=== PATIENT | male | born 1960 | race Caucasian/White ===

== ENCOUNTER 2018-01-04 10:17 | Emergency (ER) | payer MEDICAID, OTHER ==
[~2018-01-04] VITALS: Ht 172.7 cm; Wt 89.2 kg
[~2018-01-04 10:17] MED LIST: ALBU6.7H INH; AMOX875 PO; FISH1000 PO; GLIP5 PO; GLUCTAB PO; PRAV40TA PO; PRED20 PO
[2018-01-04 10:20] VITALS: BP 96/51; PULSE 78; RESP 18; TEMP 100.4; O2SAT 96
[2018-01-04] MEDS ORDERED: ENAL20TA PO (10:27)
[2018-01-04] MEDS ORDERED: METF500T PO (10:27)
[2018-01-04] MEDS ORDERED: IBUPROFEN 600 MG TAB PO ONE (10:30)
--- NOTE | 2018-01-04 10:35 | PD ---
HPI Chief Complaint: Cold / Flu Symptoms Time Seen by Provider: 10:26 Travel History International Travel<30 days: No Contact w/Intl Traveler<30days: No Traveled to known affect area: No History of Present Illness HPI Patient complaint cold and flulike symptoms ongoing for 4 days. Patient reports there is demolition being done at his house and is uncertain if symptoms could be coming from the dust. Patient reports a dry nonproductive cough, fevers, sore throat, and low back pain with coughing. Patient reports taking [id number] cold and flu medication for symptomatic relief. Patient denies anything making it worse. Denies any chest pain, shortness of breath, neck pain, headache, abdominal pain, loss change in bowel or bladder, IV drug use, difficulty swallowing, or radiation of pain. Patient describes pain in his low back is sore achiness. Denies any trauma. PFSH Past Medical History High Cholesterol: Yes Diabetes: Yes Patient Takes Glucophage: Yes Diminished Hearing: No GERD: Yes Hypertension: Yes Influenza Vaccination: No Past Surgical History Abdominal Surgery: Yes (HERNIA REPAIR UMBILICAL) Other Surgery: Yes Social History Alcohol Use: No Tobacco Use: Yes (CIGS HALF PACK PER DAY) Substance Use: No Allergies-Medications (Allergen,Severity, Reaction): Coded Allergies: No Known Allergies (Verified Adverse Reaction, Unknown, 01/04/18) Reported Meds & Prescriptions Reported Meds & Active Scripts Active Ventolin Hfa 18 GM Inh (Albuterol Sulfate) 90 Mcg/Act Aer 2 Puff INH Q4H PRN Reported Enalapril (Enalapril Maleate) 20 Mg Tab 20 Mg PO DAILY Metformin (Metformin HCl) 500 Mg Tab 500 Mg PO BIDPC Review of Systems Except as stated in HPI: all other systems reviewed are Neg Physical Exam Narrative GENERAL: Well-developed, overly nourished, in no acute distress, and non-ill appearing. SKIN: Focused skin assessment warm and dry. HEAD: Atraumatic. Normocephalic. EYES: Pupils equal and round. EOMI. No scleral icterus. No injection or drainage. ENT: No nasal bleeding or discharge. Mucous membranes pink and moist. Tympanic membranes pearly palmer bilaterally. Posterior pharynx mildly erythematous without exudate. Uvula is midline. No tenderness to facial sinuses to palpation. NECK: Trachea midline. No cervical lymphadenopathy. Supple. No nuclear rigidity. CARDIOVASCULAR: Regular rate and rhythm. No murmur appreciated. RESPIRATORY: No accessory muscle use. No respiratory distress. Clear to auscultation. Breath sounds equal bilaterally. Dry cough noted on exam. Patient speaking full sentences without difficulty. MUSCULOSKELETAL: No obvious deformities. No clubbing. No cyanosis. No edema. Full range of motion. NEUROLOGICAL: Awake and alert. No obvious cranial nerve deficits. Motor grossly within normal limits. Normal speech. PSYCHIATRIC: Appropriate mood and affect; insight and judgment normal. Data Data Last Documented VS Vital Signs Date Time Temp Pulse Resp B/P (MAP) Pulse Ox O2 Delivery O2 Flow Rate FiO2 01/04/18 10:20 100.4 78 18 96/51 (66) 96 Orders Orders Influenzae A/B Antigen (01/04/18 10:25) Group A Rapid Strep Screen (01/04/18 10:25) Chest, Single Ap (01/04/18 ) Ibuprofen (Motrin) (01/04/18 10:30) Albuterol Neb (Albuterol Neb) (01/04/18 10:45) Resp Mdi/Instruction (01/04/18 10:39) Strep Culture (Group A) (01/04/18 10:30) Ed Discharge Order (01/04/18 11:03) MDM Medical Decision Making Medical Screen Exam Complete: Yes Emergency Medical Condition: Yes Interpretation(s) Last Impressions Chest X-Ray 01/04/18 0000 Signed Impressions: Service Date/Time: Thursday, January 04, 2018 10:29 - CONCLUSION: The lungs are clear. Andre Marshall MD Differential Diagnosis Influenza, strep pharyngitis, viral pharyngitis, bronchitis, pneumonia, URI, COPD exacerbation Narrative Course Patient looks great. Patients symptom complex is consistent with Influenza, or flu-like illness. The patient is tolerating fluids and is well hydrated. There is no evidence to suggest secondary infection (pneumonia, sepsis/bacteremia, etc.) at this time. I discussed with the patient, diagnosis, and plan of care and to follow up with the patients primary physician. Flu prep is positive. I discussed with the patient initiating Tamiflu and the patient is outside the therapeutic window and the patient agreed with plan. The patient was instructed to return if the worsens in anyway, especially if not tolerating fluids, increased pain or swelling, difficulty swallowing or breathing, or as needed. The patient agreed with plan. Chest X-ray was performed and negative for consolidation, pneumonia. Patient in no obvious distress upon re-evaluation. While awaiting test results. Patient received albuterol treatment for his cough reports improvement of symptoms. All pertinent laboratory/Radiology result(s) discussed with patient. Patient was asked if they wanted to speak to my attending, which the patient did not wish to do at this time. Any questions/concerns in reference to patient diagnosis/condition discussed and clarified prior to patient's discharge. Reinforced sheer importance of close follow up with patient's primary physician or primary care clinic. Instructed patient to return to ED immediately, if symptoms return/worsen. Patient showed understanding of above instructions. Further instructions and recommendations were detailed in discharge paperwork. Patient ambulated without difficulty out of ED at discharge. Diagnosis Primary Impression: Influenza A Referrals: [facility] Patient Instructions: General Instructions, Influenza (ED) Additional Instructions: Follow-up with your primary care physician in 3-5 days for reevaluation. Take all medication as prescribed. Use [id number] Tylenol and ibuprofen as needed for pain and fever control. Follow instructions on the packaging. Drink plenty of non-caffeinated and nonalcoholic fluids. Return to the emergency department if symptoms get worse. Med/Other Pt SpecificInfo: Prescription(s) given Scripts Albuterol 18 GM Inh (Ventolin Hfa 18 GM Inh) 90 Mcg/Act Aer 2 PUFF INH Q4H Y for COUGH, #1 INHALER 0 Refills Prov: Jorge Isbell MD 01/04/18 Disposition: 01 DISCHARGE HOME Condition: Stable Paulie Gomez Jan 04, 2018 10:34
--- NOTE | 2018-01-04 10:41 | RADRPT ---
EXAM DATE/TIME: 01/04/2018 10:29 [facility] COMPARISON: No previous studies available for comparison. INDICATIONS : Cough, sore throat, fever, & back pain x a couple days. MEDICAL HISTORY : Hypercholesterolemia. Gastroesophageal reflux disease. Hypertension. Smoker. Diabetic. SURGICAL HISTORY : Umbilical hernia repair. Lower left leg grafting. ENCOUNTER: Initial ACUITY: 2 days PAIN SCORE: 7/10 LOCATION: middle chest/back FINDINGS: A single view of the chest demonstrates the lungs to be symmetrically aerated without evidence of mas s, infiltrate or effusion. Calcified granulomata in both lungs, measuring 7 mm on the left and 4 mm on the right. Bilateral granulomata were mentioned on a report of a prior chest x-ray in 2009. The cardiomediastinal contours are unremarkable. Mild degenerative changes in the thoracic spine. CONCLUSION: The lungs are clear. Andre Marshall MD on January 04, 2018 at 10:39 Board Certified Radiologist. This report was verified electronically.
[2018-01-04] MEDS ORDERED: RESP: ALBUTEROL 2.5 MG/3 ML NEB (SCH) INH ONE (10:45)
[2018-01-04] MEDS ORDERED: VENTAER INH (11:02)
== END 2018-01-04 11:39 | disposition home or self-care (01) ==
LOC: PHEFT 10:17
DX: J09.X2 Influenza due to identified novel influenza A virus with other respiratory manifestations (principal); R05 Cough; R50.9 Fever, unspecified; R07.0 Pain in throat; M54.5 Low back pain; E11.9 Type 2 diabetes mellitus without complications; I10 Essential (primary) hypertension; E78.00 Pure hypercholesterolemia, unspecified; K21.9 Gastro-esophageal reflux disease without esophagitis; F17.200 Nicotine dependence, unspecified, uncomplicated; Z79.84 Long term (current) use of oral hypoglycemic drugs
CPT/HCPCS: 71045; 87081; 87804; 87880; 94664; 99284; J7613